=== PATIENT | female | born 1950 | race Caucasian/White ===

== ENCOUNTER 2020-08-19 07:55 | Day surgery (SDC) | payer MEDICARE, BC ==
[2020-08-19] MEDS ORDERED: LACTATED RINGERS 1,000 ML IV ONE ×2 (08:07→10:48)
[2020-08-19] MEDS ORDERED: fentaNYL 250 MCG/5 ML VIAL ONE (09:50)
[2020-08-19] MEDS ORDERED: MIDAZOLAM 2 MG/2 ML VIAL ONE ×2 (09:50→10:00)
[2020-08-19 11:01] VITALS: BP 125/73
== END 2020-08-19 07:56 | disposition home or self-care (01) ==
LOC: SDS 07:55
PROVIDERS: ATTEND Surgery
PROC: 0DBL8ZZ Excision of Transverse Colon, Via Natural or Artificial Opening Endoscopic (ICD-10-PCS; principal; 2020-08-19 09:00)
DX: D12.3 Benign neoplasm of transverse colon (principal); D12.2 Benign neoplasm of ascending colon; D12.5 Benign neoplasm of sigmoid colon; K64.8 Other hemorrhoids; I10 Essential (primary) hypertension; E78.00 Pure hypercholesterolemia, unspecified; E11.9 Type 2 diabetes mellitus without complications
CPT/HCPCS: 45380; 45385; J3010; J7120

== ENCOUNTER 2021-09-06 11:30 | Day surgery (SDC) | payer MEDICARE, BC ==
[2021-09-06] MEDS ORDERED: LACTATED RINGERS 1,000 ML IV ONE (11:37)
--- NOTE | 2021-09-06 12:43 | ANESTHESIA ---
Pre-Anesthesia VS, & Labs - Diagnosis screening exam. history of large colon polyp - Procedure colonoscopy Vital Signs: Temp Pulse Resp BP Pulse Ox 36.4 C L 73 16 143/85 H 100 09/06/21 11:40 09/06/21 11:40 09/06/21 11:40 09/06/21 11:40 09/06/21 11:40 Height: 5 ft Weight (kg): 95 kg Body Mass Index: 40.8 BMI Classification: Morbidly Obese - NPO >8 hours - Is Patient ?: No Home Medications and Allergies Acyclovir [Zovirax] 400 mg PO DAILY 08/18/20 Aspirin [Aspirin EC] 81 mg PO DAILY 08/18/20 Cholecalciferol (Vitamin D3) [Vitamin D3] 1,000 units PO DAILY 08/18/20 Losartan Potassium [Cozaar] 100 mg PO DAILY 08/18/20 Simvastatin [Zocor] 20 mg PO DAILY 08/18/20 Allergies/Adverse Reactions: Allergies Allergy/AdvReac Type Severity Reaction Status Date / Time codeine Allergy Unknown Verified 08/19/20 08:46 lisinopril AdvReac Unknown Verified 08/19/20 08:46 Anes History & Medical History - Anesthetic History Anesthesia Complications: reports: No previous complications - Medical History Cardiovascular: reports: Hypertension, High cholesterol Pulmonary: reports: None Gastrointestinal: reports: None Urinary: reports: None Neuro: reports: None Musculoskeletal: reports: None Endocrine/Autoimmune: reports: None Blood Disorders: reports: None Skin: reports: None Smoking Status: Never smoker Psychosocial: reports: No issues indicated History of Cancer?: No - Surgical History General: reports: Cholecystectomy, Colonoscopy Gynecologic: reports: Hysterectomy, Other Exam General: Alert, Oriented x3, Cooperative, No acute distress Dental: WNL Mouth Openin Fingerbreadth Neck Mobility: Normal Mallampati classification: III Thyromental Distance: 4-6 cm Mental/Cognitive Status: Alert/Oriented X3, Normal for patient Plan Anesthesia Type: General, Total IV Consent for Procedure(s) Verified and Reviewed: Yes Code Status: Attempt Resuscitation ASA classification: 3-Severe systemic disease Is this case an emergency?: No
[2021-09-06] MEDS ORDERED: PROPOFOL 500 MG/50 ML 500 MG/50 ML VIAL ONE (13:04)
[2021-09-06 14:42] VITALS: BP 136/78
--- NOTE | 2021-09-06 16:23 | ANESTHESIA POST OP EVALUATION ---
Anesthesia Post Eval - Post Anesthesia Eval Vitals: Last Vital Signs Temp 36.4 C L 09/06/21 13:58 Pulse 64 09/06/21 14:30 Resp 16 09/06/21 14:30 BP 136/78 H 09/06/21 14:30 Pulse Ox 96 09/06/21 14:30 CV Function Including HR & BP: Stable Pain Control: Satisfactory Nausea & Vomiting: Negative Mental Status: Baseline Respiratory Status: Airway Patent Hydration Status: Satisfactory Anesthesia Complications: None
== END 2021-09-06 11:31 | disposition home or self-care (01) ==
LOC: SDS 11:30
PROVIDERS: ATTEND Surgery
PROC: 0DBK8ZZ Excision of Ascending Colon, Via Natural or Artificial Opening Endoscopic (ICD-10-PCS; principal; 2021-09-06 13:00)
DX: Z12.11 Encounter for screening for malignant neoplasm of colon (principal); D12.2 Benign neoplasm of ascending colon; K57.30 Diverticulosis of large intestine without perforation or abscess without bleeding; K64.8 Other hemorrhoids; K64.4 Residual hemorrhoidal skin tags; E66.01 Morbid (severe) obesity due to excess calories; Z68.41 Body mass index [BMI] 40.0-44.9, adult
CPT/HCPCS: 45380; J7120